=== PATIENT | female | born 1945 | race Caucasian/White ===

== ENCOUNTER 2019-09-09 10:52 | Emergency (ER) | payer MEDICARE, OTHER ==
[2019-09-09 11:06] VITALS: BP 158/80; PULSE 82; O2SAT 95
--- NOTE | 2019-09-09 11:20 | ERPHSYRPT ---
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, finger is bruised at the first knuckle all the way around the finger and has a 1 cm laceration, rates pain 1/10, hypertensive, pt doesn't appear to be in any distress Occurred: just prior to arrival Method of Injury: other (crush injury) Quality: constant Severity of Pain-Max: moderate Severity of Pain-Current: mild Extremities Pain Location: 5th finger: left Modifying Factors: Improves With: movement Associated Symptoms: none Allergies/Adverse Reactions: Quinolones Allergy (Verified 09/09/19 11:07) Hx Tetanus, Diphtheria Vaccination/Date Given: No - Review of Systems Constitutional: No Fever, No Chills Eyes: No Symptoms Ears, Nose, & Throat: No Symptoms Respiratory: No Cough, No Dyspnea Cardiac: No Chest Pain, No Edema, No Syncope Abdominal/Gastrointestinal: No Abdominal Pain, No Nausea, No Vomiting, No Diarrhea Genitourinary Symptoms: No Dysuria Musculoskeletal: Injury, Joint Pain, No Back Pain, No Neck Pain Skin: Other (laceration), No Rash Neurological: No Dizziness, No Focal Weakness, No Sensory Changes Psychological: No Symptoms Endocrine: No Symptoms All Other Systems: Reviewed and Negative - Past Medical History Cardiac History: High Cholesterol, Hypertension Endocrine Medical History: Diabetes Type II, Hypothyroidism - Past Surgical History Past Surgical History: Yes Musculoskeletal: Other Female Surgical History: Mastectomy - Social History Smoking Status: Current every day smoker Exposure to second hand smoke: Yes Drug Use: none Patient Lives Alone: No - Female History Hx Now: No - Nursing Vital Signs Nursing Vital Signs: Initial Vital Signs Temperature 98.2 F 09/09/19 11:00 Pulse Rate 82 09/09/19 11:00 Blood Pressure 158/80 09/09/19 11:00 O2 Sat by Pulse Oximetry 95 09/09/19 11:00 Pain Scale Pain Intensity 1 - Physical Exam General Appearance: alert Eyes, Ears, Nose, Throat Exam: moist mucous membranes Neck Exam: non-tender, supple Cardiovascular/Respiratory Exam: chest non-tender, normal breath sounds, regular rate/rhythm, no respiratory distress Abdominal Exam: non-tender, No guarding Back Exam: normal inspection, No vertebral tenderness Elbow/Forearm Exam: normal inspection Wrist Exam: normal inspection Hand Exam: normal ROM, ecchymosis, laceration (dorsum left 5th middle phalanx area), soft tissue tenderness Neuro/Tendon Exam: normal sensation, normal motor functions Mental Status Exam: alert, oriented x 3, cooperative Skin Exam: normal color, warm, dry, laceration (1.5cm lac to dorsum left 5th mid phalanx area) SpO2: 95 Procedures - Laceration/Wound Repair Left Proximal Dorsal Finger Wound Location: Left Wound Length (cm): 1.5 Wound's Depth, Shape: superficial, linear Wound Explored: clean Irrigated: Yes Hibiclens Prep: Yes Wound Repaired With: Steri-strips, Dermabond Sterile Dressing Applied?: Yes Splint Applied?: No Sling Applied?: No Progress: 09/09/19 11:55 Pt tolerated well - Course Nursing assessment & vital signs reviewed: Yes - Radiology Exams Hand X-ray Interpretation: Discussed w/ radiologist, Negative, No Fracture Ordered Tests: Active Orders 24 hr Category Date Time Status FINGER(S) Stat Exams 09/09/19 11:13 Completed - Progress Progress: improved Progress Note: 09/09/19 11:35 XR neg, tetanus given. DErmabond, steri-strips and bulky dressing. Will DC home. Counseled pt/family regarding: diagnosis, need for follow-up, rad results - Departure Departure Disposition: Home Clinical Impression: Finger contusion Qualifiers: Encounter type: initial encounter Finger: little finger Damage to nail status: without damage Laterality: left Qualified Code(s): S60.052A - Contusion of left little finger without damage to nail, initial encounter Finger laceration Qualifiers: Encounter type: initial encounter Finger: little finger Damage to nail status: without damage Foreign body presence: without foreign body Laterality: left Qualified Code(s): S61.217A - Laceration without foreign body of left little finger without damage to nail, initial encounter Condition: Stable Critical Care Time: No Referrals: TOYA MAYES MD [Primary Care Provider] - Instructions: Laceration Repair With Glue (DC) Additional Instructions: Keep dry. Motrin for pain. Look out for signs of infection such as redness, swelling, pus, increase in pain. Follow up with PCP for recheck. Return to ER if worse.
--- NOTE | 2019-09-09 11:22 | XRAY ---
Indication: Laceration. Comparison: None 3 views of the left 5th finger demonstrates mild osteopenia. No other bony, articular, or soft tissue abnormalities.
[2019-09-09] MEDS ORDERED: Adacel Vial IM ONE ×2 (11:59→12:01)
== END 2019-09-09 12:00 | disposition home or self-care (01) ==
LOC: ED 10:52
DX: S60.052A Contusion of left little finger without damage to nail, initial encounter (principal); W23.1XXA Caught, crushed, jammed, or pinched between stationary objects, initial encounter; Y93.89 Activity, other specified; Y92.238 Other place in hospital as the place of occurrence of the external cause; Y99.0 Civilian activity done for income or pay
CPT/HCPCS: 12001; 73140; 90471; 90715; 99283

== ENCOUNTER 2023-11-05 13:44 | Emergency (ER) | payer MEDICARE ==
--- NOTE | 2023-11-05 13:48 | ERPHSYRPT ---
- History of Present Illness Time Seen by Provider: 11/05/23 13:48 Source: patient, family Exam Limitations: no limitations Physician History: This is a right-handed white female patient of Dr. Bello who caught her left fifth digit in a door at work as a shot. It is mildly throbbing. Patient has a history of hyperlipidemia, hypertension, diabetes and hypothyroidism. The patient is a daily smoker of cigarettes. She is not on any anticoagulation therapy. Her tetanus status is unknown Occurred: just prior to arrival Method of Injury: other (Caught in a door at work) Quality: throbbing Severity of Pain-Max: mild Severity of Pain-Current: mild Modifying Factors: Improves With: nothing Associated Symptoms: none Allergies/Adverse Reactions: Quinolones Allergy (Verified 11/05/23 13:51) Home Medications: Fluoxetine HCl 20 mg [Prozac 20 MG] 10 mg PO DAILY 11/05/23 [History] Hydrochlorothiazide 25 mg [hydroDIURIL 25 MG] 25 mg PO DAILY 11/05/23 [History] Levothyroxine Sodium 50 Mcg [Synthroid 50 Mcg] 50 mcg PO DAILY 11/05/23 [History] Metformin HCl 500 mg [Glucophage 500 MG] 500 mg PO BIDWM 11/05/23 [History] Simvastatin 10 mg [Zocor 10MG] 40 mg PO DAILY 11/05/23 [History] Hx Tetanus, Diphtheria Vaccination/Date Given: No Travel Risk - International Travel Have you traveled outside of the country in past 3 weeks: No - Emerging Infectious Disease Are you exhibiting symptoms associated with any current EIDs: No - Review of Systems Constitutional: No Symptoms Eyes: No Symptoms Ears, Nose, & Throat: No Symptoms Respiratory: No Symptoms Cardiac: No Symptoms Abdominal/Gastrointestinal: No Symptoms Genitourinary Symptoms: No Symptoms Musculoskeletal: Injury (Tip of left fifth digit) Skin: No Symptoms Neurological: No Symptoms Psychological: No Symptoms Endocrine: No Symptoms Hematologic/Lymphatic: No Symptoms Immunological/Allergic: No Symptoms All Other Systems: Reviewed and Negative - Past Medical History Cardiac History: High Cholesterol, Hypertension Endocrine Medical History: Diabetes Type II, Hypothyroidism - Past Surgical History Past Surgical History: Yes Musculoskeletal: Other Female Surgical History: Mastectomy - Social History Smoking Status: Current every day smoker Exposure to second hand smoke: Yes Drug Use: none Patient Lives Alone: No - Nursing Vital Signs Nursing Vital Signs: Initial Vital Signs Temperature 97.4 F 11/05/23 14:12 Pulse Rate 72 11/05/23 14:12 Respiratory Rate 20 11/05/23 14:12 Blood Pressure 171/89 11/05/23 14:12 O2 Sat by Pulse Oximetry 98 11/05/23 14:12 Pain Scale Pain Intensity 2 - Physical Exam General Appearance: no apparent distress, alert Eyes, Ears, Nose, Throat Exam: normal ENT inspection, moist mucous membranes Neck Exam: normal inspection, non-tender, supple, full range of motion Cardiovascular/Respiratory Exam: chest non-tender, no respiratory distress Abdominal Exam: non-tender Back Exam: normal inspection, normal range of motion, No CVA tenderness, No vertebral tenderness Shoulder Exam: normal inspection, non-tender, no evidence of injury, normal ROM Elbow/Forearm Exam: normal inspection, non-tender, no evidence of injury, normal ROM Wrist Exam: normal inspection, non-tender, no evidence of injury, normal ROM Hand Exam: normal ROM, laceration (Distal left fifth digit.), nail injury (Nail avulsion with underlying laceration to nailbed), soft tissue tenderness (Distal left fifth digit) Neuro/Tendon Exam: normal sensation, normal motor functions, normal tendon functions, responds to pain, no evidence tendon injury Mental Status Exam: alert, oriented x 3, cooperative Skin Exam: laceration (Distal left fifth digit) SpO2 Interpretation: normal O2 Delivery: Room Air Procedures - Laceration/Wound Repair Left Distal Dorsal Finger Time of Procedure: 14:45 Wound Location: Left, hand (Distal fifth digit) Wound Length (cm): 1 Wound's Depth, Shape: superficial, linear Wound Explored: Nail avulsion (Wound explored to the base in a bloodless field and no foreign body noted.) Irrigated: Yes Hibiclens Prep: Yes Anesthesia: 1% Lidocaine Volume Anesthetic (ccs): 2 Wound Repaired With: sutures Suture Size/Type: 4-0, 3-0, prolene, vicryl Number of Sutures: 4 (two 3-0 Prolene,two 4-0 Vicryl in the nailbed) Layer Closure?: No Progress: 11/05/23 15:00 No complications. Patient tolerated the procedure well. The nurse applied bacitracin ointment to site followed by nonstick gauze and pressure dressing. - Course Nursing assessment & vital signs reviewed: Yes Ordered Tests: Active Orders 24 hr Category Date Time Status FINGER(S) Stat Exams 11/05/23 13:56 Completed Medication Summary Discontinued Medications Generic Name Dose Route Start Last Admin Trade Name Dwigth PRN Reason Stop Dose Admin Lidocaine HCl Confirm 11/05/23 14:37 Lidocaine Hcl 1% 20 Ml Mdv 20 Ml Ml Administered 11/05/23 14:38 Dose 5 ml .ROUTE .VertiFlex ONE - Progress Progress Note: 11/05/23 14:20 This patient's medical issue is 1 of low complexity. Level complexity in the workup performed is based on review of the patient's past medical history, review the patient's medication list, review of the patient drug allergy list, history present illness and physical findings on examination. This patient workup includes x-ray of the patient's left hand. 11/05/23 14:23 The x-ray of the left hand/specifically left fifth digit, was interpreted by the radiologist. I reviewed the impression. Impression states new, nondisplaced tuft fracture with soft tissue swelling and posterior laceration. There are other chronic, degenerative changes present. Counseled pt/family regarding: diagnosis, need for follow-up, rad results Medical Desision Making - Diagnostic Testing Diagnostic test were ordered, analyzed, and reviewed by me: Yes Radiological Interpretation: Reviewed by me, Teleradiologist Report - Risk of complications The pt has a mod risk of morbidity or mortality based on: Need for prescription drug management - Departure Departure Disposition: Home Clinical Impression: Finger laceration, Nailbed laceration, finger, Nail avulsion, finger Condition: Stable Critical Care Time: No Referrals: WALKER BELLO MD [Primary Care Provider] - Follow up/PCP as directed Additional Instructions: Keep the current dressing in place until 8 PM on 11/06/2023. At that time, you can remove the dressing and allow the soap and water to rinse off of the site. Blot dry or use a political science chair then apply bacitracin ointment followed by bandage or finger gauze/caught. Suture removal in 8 to 10 days. Take your antibiotics and other medications as prescribed. Prescriptions: Cephalexin Mh 500 mg [Keflex 500 mg] 500 mg PO TID #15 cap
[2023-11-05 14:14] VITALS: BP 171/89; PULSE 72; RESP 20; TEMP 97.4; O2SAT 98
--- NOTE | 2023-11-05 14:19 | XRAY ---
Indication: Pain following injury. Comparison: September 09, 2019 3 view left 5th finger demonstrates new nondisplaced tuft fracture with soft tissue swelling and posterior laceration. Again incidental osteopenia and minimal degenerative changes all IP joints.
[2023-11-05] MEDS ORDERED: XYLOCAINE 1% HCL 20 ML MDV ONE (14:37)
[2023-11-05] MEDS ORDERED: BACIGUENT PACKET ONE (14:59)
[2023-11-05] MEDS ORDERED: Adacel Vial IM ONE (15:18)
[2023-11-05] MEDS: Adacel Vial IM ONE (15:22)
[2023-11-05] MEDS: BACIGUENT PACKET TP ONE (15:23)
== END 2023-11-05 15:26 | disposition home or self-care (01) ==
LOC: ED 13:44
DX: S62.667B Nondisplaced fracture of distal phalanx of left little finger, initial encounter for open fracture (principal); S61.317A Laceration without foreign body of left little finger with damage to nail, initial encounter; W23.1XXA Caught, crushed, jammed, or pinched between stationary objects, initial encounter; Y99.0 Civilian activity done for income or pay; E78.5 Hyperlipidemia, unspecified; I10 Essential (primary) hypertension; E11.9 Type 2 diabetes mellitus without complications; Z79.84 Long term (current) use of oral hypoglycemic drugs; Z79.899 Other long term (current) drug therapy; Z72.0 Tobacco use; Z23 Encounter for immunization
CPT/HCPCS: 12001; 73140; 90471; 90715; 99283; A9270-GY